=== PATIENT | female | born 1995 | race African-American/Black ===

== ENCOUNTER 2017-05-25 02:16 | Observation (INO) | payer OTHER ==
[~2017-05-25] VITALS: Ht 152.4 cm; Wt 81.6 kg
[2017-05-25] MEDS ORDERED: PREN-88 PO (02:55)
[2017-05-25] MEDS ORDERED: LACTATED RINGERS 1,000 ML IV SCH (03:15)
[2017-05-25] MEDS ORDERED: ACETAMINOPHEN 500MG TABLET PO ONE (03:15)
== END 2017-05-25 05:30 | disposition home or self-care (01) ==
LOC: L&D 02:16
PROVIDERS: ADMIT Obstetrics & Gynecology; ATTEND Obstetrics & Gynecology
DX: O26.893 Other specified pregnancy related conditions, third trimester (principal); R10.9 Unspecified abdominal pain; Z3A.36 36 weeks gestation of pregnancy
CPT/HCPCS: 99281; G0378; J7120; 96360; 96361